=== PATIENT | female | born 1960 | race Caucasian/White ===

== ENCOUNTER 2023-08-30 14:59 | Outpatient (AMB) | payer BC, SELFPAY ==
--- NOTE | 2023-08-30 15:04 | A.OFFVIS_ITS ---
Intake Vital Signs 08/30/23 15:05 Height 5 ft 3 in Weight 116 lb 13.52 oz BMI 20.7 BP 116/69 Blood Pressure Location Lt brachial Position Sitting Pulse 80 Intake Visit Reasons: change in bowel movements Intake Note: Jennifer presents in the office as a new patient for change in bowel movements. CC: She states that at the moment she is okay. Sometimes she has constipation and diarrhea is rare. She states lately constipation has been under control. Sometimes she gets pains in her stomach and denies blood when she has a BM. She states it happened a couple times due to hemorrhoids. Control Analyst Required: No Allergies No Known Allergies Allergy (Verified 08/30/23 15:07) HPI HPI Comments History of Present Illness Details This is a 63y.o F with PMH of osteoporosis who is here for change in BMs. Pt reports longstanding hx of constipation however for the past few months has noticed change in the texture of her BM. Pt reports having a back injury in Apr for which she had to take painkillers, once she stopped taking those she noticed that her stool has become softer. [place] Stool scale 4. No blood or mucus. No urgency, night time sx or unintentional weight loss. Pt is bothered that it takes longer to wipe now and risk irritating her hemorrhoids. Last colo 07/2014 per PCP's notes. PFSH Surgical History (Updated 08/30/23 @ 15:07 by ZULEIKA Syed) Hx of colonoscopy Social History (Updated 08/30/23 @ 15:08 by ZULEIKA Syed) Household Members: Significant Other Alcohol intake: current Alcohol intake frequency: holidays/special occasions only Patient Tobacco Use Status: Never used Tobacco Use of substances other than those prescribed or required for medical reasons: No Review of Systems Const All systems reviewed & are unremarkable except as noted in HPI and below Physical Exam Vital Signs: Last Vital Signs Pulse 80 08/30/23 15:05 BP 116/69 08/30/23 15:05 BMI result Body Mass Index 20.7 Const General: healthy appearing Orientation/consciousness: patient oriented x3 HEENT Head: Yes normal to inspection Resp Effort & Inspection: normal respiratory effort Neuro General: patient oriented x3 and gait normal Assessment & Plan Assessment & Plan (1) Colon cancer screening: Code(s): Z12.11 - Encounter for screening for malignant neoplasm of colon (2) Hemorrhoids: Code(s): K64.9 - Unspecified hemorrhoids Plan Reviewed with the pt that stools are actually normal based on her description and corroboration with [place] chart. To avoid irritating hemorrhoids, should avoid excessive straining and wiping. Recommend using baby wipes which are gentler than toilet paper or better yet, water - can use kiara-bottle to wash. [place] due in 2024 which she can get through our office or through [facility]. Pt will contact her PCP to help arrange it. Follow up PRN Coding Level of Care Code New Pt Level 3 (40500) Diagnoses Colon cancer screening Z12.11 Hemorrhoids K64.9
[2023-08-30 15:05] VITALS: BP 116/69; PULSE 80; BMI 20.7
== END 2023-08-30 16:43 | disposition home or self-care (01) ==
PROVIDERS: PCP Family Medicine; Visit Provider Internal Medicine
DX: Z01.818 Encounter for other preprocedural examination (principal); Z12.11 Encounter for screening for malignant neoplasm of colon; R19.4 Change in bowel habit; K64.9 Unspecified hemorrhoids
CPT/HCPCS: S0285

== ENCOUNTER → 2023-08-30 14:59 | Outpatient (BNVA) | payer BC, SELFPAY | PROVIDERS: Visit Provider Internal Medicine ==